=== PATIENT | female | born 1995 | race African-American/Black ===

== ENCOUNTER 2018-11-02 18:49 | Emergency (ER) | payer OTHER ==
[~2018-11-02] VITALS: Ht 165.1 cm; Wt 59.0 kg
[2018-11-02] MEDS ORDERED: NAPROSYN500 MG PO (19:51)
[2018-11-03 00:12] VITALS: BP 134/76
== END 2018-11-02 20:15 | disposition home or self-care (01) ==
LOC: ER 18:49
DX: S80.01XA Contusion of right knee, initial encounter (principal); V89.2XXA Person injured in unspecified motor-vehicle accident, traffic, initial encounter; Y93.89 Activity, other specified; Y92.488 Other paved roadways as the place of occurrence of the external cause; Y99.8 Other external cause status

== ENCOUNTER 2019-01-07 08:40 | Emergency (ER) | payer OTHER ==
[~2019-01-07] VITALS: Ht 170.2 cm; Wt 93.9 kg
[~2019-01-07 08:40] MED LIST: NAPROSYN500 MG PO
[2019-01-07 08:57] VITALS: BP 151/85
[2019-01-07] MEDS ORDERED: IMITREX 50 MG T50 MG PO (09:21)
== END 2019-01-07 09:37 | disposition home or self-care (01) ==
LOC: ER 08:40
DX: G44.009 Cluster headache syndrome, unspecified, not intractable (principal); Z91.041 Radiographic dye allergy status